=== PATIENT | male | born 1955 | race Caucasian/White ===

== ENCOUNTER 2020-03-22 09:38 | Emergency (ER) | payer MEDICARE, OTHER, SELFPAY ==
--- NOTE | ~2020-03-22 | XR_ITS ---
EXAMINATION: XR chest 2V DATE: 03/22/2020 10:32 INDICATION: Cough, congestion and chest heaviness TECHNIQUE: frontal and lateral views of the chest were obtained. COMPARISON: Chest radiograph dated 12/01/2014 FINDINGS: The lungs remain clear with no focal airspace opacities, pulmonary edema, pleural effusion or pneumot horax. The cardiomediastinal silhouette is normal. There are bridging osteophytes at multiple levels in the spine, consistent with diffuse idiopathic skeletal hyperostosis (DISH). IMPRESSION: 1. No acute cardiopulmonary disease. Reviewed, dictated and finalized at location A. [facility]
[2020-03-22 09:52] VITALS: BP 123/68; PULSE 53; RESP 18; TEMP 36.2; O2SAT 98
--- NOTE | 2020-03-22 10:20 | ED.URI ---
HPI - URI/Sore Throat General Chief Complaint: Upper Respiratory Infection Stated Complaint: Sore Throat Source: patient and RN notes reviewed Mode of arrival: ambulatory Limitations: no limitations History of Present Illness HPI Narrative: This is a 64-year-old white male that presented to the urgent care today complaining of a sore throat, productive cough with yellowish sputum, chest congestion fatigue and diarrhea with some shortness of breath. Patient noted that he recently was tested for Covid with a rapid test that was negative he requested that a send out Covid test be completed. Patient noted that he started developing symptoms approximately 1 week ago. The patient denies CP, palpitation, extremity numbness, lightheadedness, dizziness, constipation, chills, or fever. Related Data Home Medications Medication Instructions Recorded Confirmed allopurinol 100 mg PO DAILY 03/22/20 03/22/20 atorvastatin 40 mg PO DAILY 03/22/20 03/22/20 lisinopril 10 mg PO DAILY 03/22/20 03/22/20 metoprolol succinate 25 mg PO DAILY 03/22/20 03/22/20 rivaroxaban [Xarelto] 20 mg PO DAILY 03/22/20 03/22/20 Allergies Allergy/AdvReac Type Severity Reaction Status Date / Time CEPHASPORINS Allergy Hives Uncoded 03/22/20 10:25 Review of Systems Review of Systems: All systems reviewed & are unremarkable except as noted in HPI and below (10 point system review) Exam Narrative: Exam Narrative: GENERAL: This is a well-nourished, well-developed patient, in no apparent distress. HEAD: normocephalic, atraumatic. EYES: PERRL. Sclera clear/white. Vision is grossly intact. EARS: External ears normal, auditory canals clear and without drainage, TMs normal without perforation. Hearing grossly intact. NOSE: External nose normal with no obvious nasal discharge, nares without redness, no rhinorrhea. THROAT: Mucous membranes moist, posterior pharynx clear. NECK: Neck supple, non-tender without lymphadenopathy, masses or thyromegaly. CARDIOVASCULAR: Regular rate and rhythm without murmurs, gallops, or rubs. RESPIRATORY: Clear to auscultation. Breath sounds equal bilaterally. No wheezes, rales, or rhonchi. GASTROINTESTINAL: Abdomen soft, non-tender, nondistended. Bowel sounds are active. No hepato-splenomegaly, or palpable masses. No guarding. SKIN: warm, intact with no suspicious lesions or rash, good texture and turgor. NEURO: awake, alert, and oriented to person, place and time. There were no obvious focal neurologic abnormalities. Steady gait EXTREMITIES: Normal range of motion. No edema. No calf tenderness. Negative Homans sign bilaterally. BACK: Nontender without deformity or crepitance. No flank tenderness. Course Vital Signs Vital signs: Vital Signs Temperature 97.2 F L 03/22/20 09:52 Pulse Rate 53 L 03/22/20 09:52 Respiratory Rate 18 03/22/20 09:52 Blood Pressure 123/68 03/22/20 09:52 Pulse Oximetry 98 03/22/20 09:52 Temperature 97.2 F L 03/22/20 09:52 Pulse Rate 53 L 03/22/20 09:52 Respiratory Rate 18 03/22/20 09:52 Blood Pressure 123/68 03/22/20 09:52 Pulse Oximetry 98 03/22/20 09:52 MDM - URI/Sore Throat Differential Diagnosis Differential diagnosis: Likely upper respiratory infection, otitis media, sinusitis, viral infection and pharyngitis Lab Data Attestation: I reviewed the patient's lab results. Labs: Strep Screen Presumptive Negative *(Reference Range: Negative)* Discharge Plan Discharge Clinical Impression: Upper respiratory infection Patient Disposition: Home, Self-Care Condition: Stable Instructions: Antibiotic Form, Upper Respiratory Infection (DC) Additional Instructions: This is likely viral illness, no antibiotic is needed at this time. Treatment is aimed toward your specific symptoms. You must treat your symptoms in order to feel better while the virus runs it's course. Recommend antihistamine such as Benadryl at n
== END 2020-03-22 10:53 | disposition home or self-care (01) ==
PROVIDERS: Emergency Provider Nurse Practitioner
DX: J06.9 Acute upper respiratory infection, unspecified (principal)
CPT/HCPCS: 71046; 87081; 87880; 99213; G0463

== ENCOUNTER 2021-05-21 09:36 | Emergency (ER) | payer MEDICARE, OTHER, SELFPAY ==
[2021-05-21 09:49] VITALS: BP 134/76; PULSE 57; RESP 18; TEMP 36; O2SAT 99
--- NOTE | 2021-05-21 10:37 | ED.EYEPROB ---
HPI - Eye Problem General Chief complaint: Eye Problems Stated complaint: Jaw pain,Eye Irritation Time Seen by Provider: 05/21/21 10:21 Source: patient and RN notes reviewed Mode of arrival: ambulatory Limitations: no limitations History of Present Illness HPI Narrative: Patient presents today complaining of a 2-day history of green/yellow eye drainage and redness in the morning and at night, as well as mild right lower jaw/throat pain. He currently rates his pain 2/10. He has tried no medication for symptoms prior to arrival. Denies fever, cough, congestion or rhinorrhea. Denies vision changes. He does not wear contacts. States he has had cold symptoms for the past couple weeks, but had almost fully resolved prior to arrival. Related Data Home Medications Medication Instructions Recorded Confirmed allopurinol 100 mg PO DAILY 03/22/20 05/21/21 atorvastatin 40 mg PO DAILY 03/22/20 05/21/21 lisinopril 10 mg PO DAILY 03/22/20 05/21/21 metoprolol succinate 25 mg PO DAILY 03/22/20 05/21/21 rivaroxaban [Xarelto] 20 mg PO DAILY 03/22/20 05/21/21 apixaban [Eliquis] 5 mg DIRECTED 05/21/21 05/21/21 Allergies Allergy/AdvReac Type Severity Reaction Status Date / Time CEPHASPORINS Allergy Hives Uncoded 03/22/20 10:25 Review of Systems Review of Systems: CONSTITUTIONAL: Denies body aches, fever, chills, or sweats. EYES: Denies visual changes. + Right eye redness and discharge ENT: Denies rhinorrhea, congestion, or otalgia. Right jaw pains and sore throat CARDIOVASCULAR: Denies chest pain, palpitations, or edema. RESPIRATORY: Denies cough or dyspnea. GASTROINTESTINAL: Denies abdominal pain, nausea, vomiting, or diarrhea. GENITOURINARY: Denies dysuria or hematuria. SKIN: Denies rash, itching, or wounds. MUSCULOSKELETAL: Denies back pain, joint pain, or myalgia. NEUROLOGIC: Denies headache, numbness, tingling, or weakness. PSYCH: Denies depression or anxiety. PMFSH Comments At time of signature, I have reviewed and agree with nursing past medical, surgical, social and family history unless otherwise noted. Please see nursing chart for further information. There is no relevant family history pertinent to the presenting complaint Exam Narrative: GENERAL: Well-appearing, well-nourished, and in no acute distress. HEAD: Normocephalic, atraumatic. EYES: EOMI. PERRL. Right eye: Injected conjunctiva. No active drainage. Lids and lashes normal. Left eye normal. ENT: Mucous membranes pink and moist. Nares clear. No rhinorrhea. TMs normal bilaterally. Throat normal. Uvula midline. Patient localizes his sore throat at a submandibular lymph node that is mildly swollen. NECK: Normal AROM. Supple. CHEST: No respiratory distress. Clear to auscultation. HEART: Regular rate and rhythm. No murmur appreciated. Normal peripheral pulses. ABDOMEN: Soft, nontender, nondistended, normal active bowel sounds. MUSCULOSKELETAL: No bony tenderness. EXTREMITIES: Normal range of motion. No edema. SKIN: Warm, dry, no rash. Capillary refill normal. Normal skin turgor. NEURO: No focal deficits. Alert and oriented x3. Gait steady. PSYCH: Normal affect. No signs of depression or anxiety. Course Course Level of Care: Express Care Visit Vital Signs Vital signs: Vital Signs Temperature 96.8 F L 05/21/21 09:49 Pulse Rate 57 L 05/21/21 09:49 Respiratory Rate 18 05/21/21 09:49 Blood Pressure 134/76 05/21/21 09:49 Pulse Oximetry 99 05/21/21 09:49 Temperature 96.8 F L 05/21/21 09:49 Pulse Rate 57 L 05/21/21 09:49 Respiratory Rate 18 05/21/21 09:49 Blood Pressure 134/76 05/21/21 09:49 Pulse Oximetry 99 05/21/21 09:49 Reviewed. Pt has been instructed to follow up with his PCP regarding his elevated blood pressure today. MDM - Eye Problem Differential Diagnosis Differential diagnosis: Likely corneal abrasion, conjunctivitis, periorbital cellulitis and other (Strep throat, pharyngitis) Critical Care Time Criti
== END 2021-05-21 10:55 | disposition home or self-care (01) ==
PROVIDERS: Emergency Provider Nurse Practitioner
DX: H10.9 Unspecified conjunctivitis (principal); I88.9 Nonspecific lymphadenitis, unspecified; I48.91 Unspecified atrial fibrillation; E78.00 Pure hypercholesterolemia, unspecified; I10 Essential (primary) hypertension
CPT/HCPCS: 99213; G0463

== ENCOUNTER 2021-08-16 08:28 | Emergency (ER) | payer MEDICARE, OTHER, SELFPAY ==
[2021-08-16 08:41] VITALS: BP 130/75; PULSE 54; RESP 16; TEMP 35.6; O2SAT 98
--- NOTE | 2021-08-16 09:13 | ED.URI ---
HPI - URI/Sore Throat General Chief Complaint: Upper Respiratory Infection Stated Complaint: Sore throat,Cough Time Seen by Provider: 08/16/21 09:13 Source: patient Mode of arrival: ambulatory Limitations: no limitations History of Present Illness HPI Narrative: 66-year-old male presents with complaint of nasal congestion, cough, sore throat for 2 to 3 days. Denies fever chills. Denies fatigue denies chest pain or shortness of breath. Denies nausea vomiting diarrhea. Is not taking any [id number] medications to treat his symptoms. 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 All systems reviewed and negative except as noted above. Related Data Home Medications Medication Instructions Recorded Confirmed allopurinol 100 mg PO DAILY 03/22/20 08/16/21 atorvastatin 40 mg PO DAILY 03/22/20 08/16/21 lisinopril 10 mg PO DAILY 03/22/20 08/16/21 metoprolol succinate 25 mg PO DAILY 03/22/20 08/16/21 rivaroxaban [Xarelto] 20 mg PO DAILY 03/22/20 08/16/21 apixaban [Eliquis] 5 mg DIRECTED 05/21/21 08/16/21 fluticasone propionate [Flonase 50 mcg INTRANASAL DAILY 08/16/21 08/16/21 Allergy Relief] Allergies Allergy/AdvReac Type Severity Reaction Status Date / Time Cephalosporins Allergy Rash Verified 08/16/21 08:39 Review of Systems Review of Systems: CONSTITUTIONAL: Denies fever, chills, or sweats. EYES: Denies visual changes, redness, or discharge. ENT: Reports rhinorrhea, congestion, sore throat. Denies otalgia. CARDIOVASCULAR: Denies chest pain, palpitations, or edema. RESPIRATORY: Reports cough. Denies dyspnea. GASTROINTESTINAL: Denies abdominal pain, nausea, vomiting, or diarrhea. GENITOURINARY: Denies dysuria or hematuria. SKIN: Denies rash or itching. MUSCULOSKELETAL: Denies back pain, joint pain, or myalgia. NEUROLOGIC: Denies headache, numbness, or weakness. PSYCHIATRIC: Denies anxiety or depression. All other systems reviewed are negative, except as documented in HPI. PMFSH Comments At time of signature, agree with nursing past medical, surgical, social and family history. There is no relevant family history pertinent to the presenting complaint. Exam Narrative: GENERAL: This is a well-nourished, well-developed patient, in no apparent distress. HEAD: normocephalic, atraumatic. EYES: PERRL. Sclera clear/white. Vision is grossly intact. EARS: External ears normal, auditory canals clear and without drainage, TMs normal without perforation. Hearing grossly intact. NOSE: External nose normal with clear nasal drainage. No erythema or swelling to nares. THROAT: Mucous membranes moist, posterior pharynx clear. NECK: Neck supple, non-tender without lymphadenopathy, masses or thyromegaly. CARDIOVASCULAR: Regular rate and rhythm without murmurs, gallops, or rubs. RESPIRATORY: Clear to auscultation. Breath sounds equal bilaterally. No wheezes, rales, or rhonchi. SKIN: warm, Dry, intact with no suspicious lesions or rash, good texture and turgor. NEURO: awake, alert, and oriented to person, place and time. There were no obvious focal neurologic abnormalities. EXTREMITIES: Normal range of motion to all extremities. Course Course Level of Care: Express Care Visit Vital Signs Vital signs: Vital Signs Temperature 35.6 C L 08/16/21 08:41 Pulse Rate 54 L 08/16/21 08:41 Respiratory Rate 16 08/16/21 08:41 Blood Pressure 130/75 08/16/21 08:41 Pulse Oximetry 98 08/16/21 08:41 Temperature 35.6 C L 08/16/21 08:41 Pulse Rate 54 L 08/16/21 08:41 Respiratory Rate 16 08/16/21 08:41 Blood Pressure 130/75 08/16/21 08:41 Pulse Oximetry 98 08/16/21 08:41 Reviewed MDM - URI/Sore Throat MDM Narrative Medical decision making narrative: Patient is well-appearing. Clear lung sounds. Negative strep, influenza and COVID test. Recommend that he take an [id number] multisymptom relief medication to treat his symptoms. Patient is a
== END 2021-08-16 09:30 | disposition home or self-care (01) ==
PROVIDERS: Emergency Provider Nurse Practitioner Family
DX: J06.9 Acute upper respiratory infection, unspecified (principal); Z20.822 Contact with and (suspected) exposure to COVID-19
CPT/HCPCS: 87081; 87426; 87804; 87880; 99213; C9803; G0463

== ENCOUNTER 2021-08-21 08:04 | Emergency (ER) | payer MEDICARE, OTHER, SELFPAY ==
[2021-08-21 08:16] VITALS: BP 127/78; PULSE 50; RESP 16; TEMP 36.6; O2SAT 97
[2021-08-21 08:17] VITALS: BP 127/78; PULSE 50; RESP 16; TEMP 36.6; O2SAT 97
--- NOTE | 2021-08-21 08:20 | ED.URI ---
HPI - URI/Sore Throat General Chief Complaint: Upper Respiratory Infection Stated Complaint: Congestion Time Seen by Provider: 08/21/21 08:21 Source: patient Mode of arrival: ambulatory Limitations: no limitations History of Present Illness HPI Narrative: 66-year-old male presents with complaint of continued cough, chest congestion. Has been sick for a total of 1 week now. Was seen here about 5 days ago and told viral URI. Was told to take [id number] multisymptom relief. Has been taking a Mucinex day and night cough medicine. He reports that he feels that his chest is more congested. States that cough was significantly worse the last 2 days but woke up this morning and cough is better but still feels congested in chest. States he is somewhat short of breath with exertion and at times has heard himself wheezing. No fever. Denies chest pain. All systems reviewed and negative as noted above. Related Data Home Medications Medication Instructions Recorded Confirmed allopurinol 100 mg PO DAILY 03/22/20 08/21/21 atorvastatin 40 mg PO DAILY 03/22/20 08/21/21 lisinopril 10 mg PO DAILY 03/22/20 08/21/21 metoprolol succinate 25 mg PO DAILY 03/22/20 08/21/21 rivaroxaban [Xarelto] 20 mg PO DAILY 03/22/20 08/21/21 apixaban [Eliquis] 5 mg DIRECTED 05/21/21 08/21/21 fluticasone propionate [Flonase 50 mcg INTRANASAL DAILY 08/16/21 08/21/21 Allergy Relief] Allergies Allergy/AdvReac Type Severity Reaction Status Date / Time Cephalosporins Allergy Rash Verified 08/16/21 08:39 Review of Systems Review of Systems: CONSTITUTIONAL: Denies fever, chills, or sweats. EYES: Denies visual changes, redness, or discharge. ENT: Denies rhinorrhea, congestion, sore throat, or otalgia. CARDIOVASCULAR: Denies chest pain, palpitations, or edema. RESPIRATORY: Reports cough, chest congestion and dyspnea on exertion. GASTROINTESTINAL: Denies abdominal pain, nausea, vomiting, or diarrhea. GENITOURINARY: Denies dysuria or hematuria. SKIN: Denies rash or itching. MUSCULOSKELETAL: Denies back pain, joint pain, or myalgia. NEUROLOGIC: Denies headache, numbness, or weakness. PSYCHIATRIC: Denies anxiety or depression. All other systems reviewed are negative, except as documented in HPI. PMFSH Comments At time of signature, agree with nursing past medical, surgical, social and family history. There is no relevant family history pertinent to the presenting complaint. Exam Narrative: GENERAL: This is a well-nourished, well-developed patient, in no apparent distress. HEAD: normocephalic, atraumatic. EYES: PERRL. Sclera clear/white. Vision is grossly intact. EARS: External ears alysa NOSE: External nose normal NECK: Neck supple, non-tender without lymphadenopathy, masses or thyromegaly. CARDIOVASCULAR: Bradycardic and regular rhythm without murmurs, gallops, or rubs. RESPIRATORY: Mildly decreased lung sounds throughout all lung au. Breath sounds equal bilaterally. No wheezes, rales, or rhonchi. SKIN: warm, Dry, intact with no suspicious lesions or rash, good texture and turgor. NEURO: awake, alert, and oriented to person, place and time. There were no obvious focal neurologic abnormalities. EXTREMITIES: Normal range of motion to all extremities. Course Course Level of Care: Express Care Visit Vital Signs Vital signs: Vital Signs Temperature 36.6 C 08/21/21 08:16 Pulse Rate 50 L 08/21/21 08:16 Respiratory Rate 16 08/21/21 08:16 Blood Pressure 127/78 08/21/21 08:16 Pulse Oximetry 97 08/21/21 08:16 Temperature 36.6 C 08/21/21 08:17 Pulse Rate 50 L 08/21/21 08:17 Respiratory Rate 16 08/21/21 08:17 Blood Pressure 127/78 08/21/21 08:17 Pulse Oximetry 97 08/21/21 08:17 Reviewed. Heart rate is low. Patient's last 3 visits to [facility] heart rate has been in the 50s. Discussed with patient and he states that his heart rate is in the 50s at his PCP visits. He has been taking metoprolol for a long ti
== END 2021-08-21 08:31 | disposition home or self-care (01) ==
PROVIDERS: Emergency Provider Nurse Practitioner Family
DX: J06.9 Acute upper respiratory infection, unspecified (principal); Z79.01 Long term (current) use of anticoagulants
CPT/HCPCS: 99213; G0463

== ENCOUNTER 2021-11-15 08:43 | Emergency (ER) | payer MEDICARE, OTHER, SELFPAY ==
[2021-11-15 08:55] VITALS: BP 134/66; PULSE 60; RESP 18; TEMP 36.3; O2SAT 98
--- NOTE | 2021-11-15 09:01 | ED.SKABFB ---
HPI - Skin/Abscess/Foreign Bdy General Stated complaint: insect bite Time Seen by Provider: 11/15/21 08:50 Source: patient Mode of arrival: ambulatory Limitations: no limitations History of Present Illness HPI narrative: Mr. López is a 66-year-old male patient presenting to the clinic today with possible insect sting infection to the right lower leg. He reports that he was stung by yellow jackets 2 to 3 days ago. Reports that the area to his right lower anterior leg became swollen and looked as though it may becoming infected so he put a pin in it to drain. Area has become more red and swollen since. Also reports being stung to the left forearm with some swelling. Related Data Home Medications Medication Instructions Recorded Confirmed allopurinol 100 mg tablet 100 mg PO DAILY 03/22/20 08/21/21 atorvastatin 40 mg tablet 40 mg PO DAILY 03/22/20 08/21/21 lisinopril 10 mg tablet 10 mg PO DAILY 03/22/20 08/21/21 metoprolol succinate 25 mg 25 mg PO DAILY 03/22/20 08/21/21 tablet,extended release 24 hr rivaroxaban 20 mg tablet (Xarelto) 20 mg PO DAILY 03/22/20 08/21/21 apixaban 5 mg tablet (Eliquis) 5 mg DIRECTED 05/21/21 08/21/21 fluticasone propionate 50 50 mcg intranasal DAILY 08/16/21 08/21/21 mcg/actuation nasal spray,suspension (Flonase Allergy Relief) Allergies Allergy/AdvReac Type Severity Reaction Status Date / Time Cephalosporins Allergy Rash Verified 08/16/21 08:39 Review of Systems Review of Systems: Pertinent positives per HPI. Patient denies any fever, chills, headache, visual changes, dizziness, cough, runny nose, sore throat, shortness of breath, chest pain, palpitations, nausea, vomiting, diarrhea, constipation, abdominal pain, or any urinary issues. PMFSH Comments At the time of my signature, I reviewed and agree with the nursing past medical, surgical, social, and family history. There is no relevant family history pertinent to the patient complaint. Exam Narrative: General: Well-developed, well nourished, in no apparent distress Head: Normocephalic, atraumatic. Cardio: Regular rate and rhythm, s1 and s2 normal, no murmur appreciated. Resp: Clear to auscultation bilaterally, no rhonchi, rales, wheezing or rubs. Integumentary: [place], warm, and dry, intact without lesion, insect sting to the left forearm which is swollen and itchy without redness. Insect sting to the right lower leg just above the anterior ankle with green pustular lesion without abscess with surrounding redness the size of a baseball. Mild induration noted with erythema. No drainage Course Course Emergency Course: Portions of this record may have been created with voice recognition software. Level of Care: Express Care Visit Vital Signs Vital signs: Vital signs reviewed MDM - Skin/Abscess/Foreign Bdy MDM Narrative Medical decision making narrative: At the time of visit patient is resting comfortably on the exam table. He denies any shortness of breath, chest pain, difficulty swallowing, or tongue swelling. Has yellow jacket sting to the left forearm which is causing some swelling and itching and insect sting to the right lower extremity that has gotten infected. I will give a course of doxycycline for the infection and have him take Benadryl for itching and swelling. Supportive measures were discussed with the patient he voiced understanding of discharge instructions and agrees to the treatment plan. Differential Diagnosis Differential diagnosis: Likely abscess of skin or subcutaneous tissue, urticaria, cellulitis and insect bites Discharge Plan Discharge Clinical Impression: Bite or sting by insect with infection Patient Disposition: Home, Self-Care Condition: Stable Instructions: Antibiotic Form, Insect Bite or Sting (ED) Additional Instructions: May take benadryl 25-50mg every 6 hours as needed for itching/swelling Take Doxycycline as prescribed Increase fluids and stay well hydrated.
== END 2021-11-15 09:14 | disposition home or self-care (01) ==
PROVIDERS: Emergency Provider Nurse Practitioner Family
DX: T63.461A Toxic effect of venom of wasps, accidental (unintentional), initial encounter (principal); L03.115 Cellulitis of right lower limb; I48.91 Unspecified atrial fibrillation; E78.00 Pure hypercholesterolemia, unspecified; I10 Essential (primary) hypertension
CPT/HCPCS: 99213; G0463

== ENCOUNTER 2022-10-04 09:19 | Emergency (ER) | payer MEDICARE, OTHER, SELFPAY ==
[2022-10-04 09:33] VITALS: BP 123/66; PULSE 76; RESP 16; TEMP 37; O2SAT 97
--- NOTE | 2022-10-04 09:33 | ED.WOUNDLAC ---
HPI - Wound/Laceration General Chief Complaint: Wound/Laceration Stated Complaint: Left Knee Laceration Time Seen by Provider: 10/04/22 09:25 Source: patient Mode of arrival: ambulatory Limitations: no limitations History of Present Illness HPI narrative: Patient is a 67-year-old male who presents with laceration to left knee. 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 Tetanus shot was 5 years ago. Denies any excessive bleeding, put pressure and a Band-Aid on knee. Denies any numbness or tingling to knee or lower extremity. States it is painful to touch. Related Data Home Medications Medication Instructions Recorded Confirmed allopurinol 100 mg tablet 100 mg PO DAILY 03/22/20 10/04/22 atorvastatin 40 mg tablet 40 mg PO DAILY 03/22/20 10/04/22 lisinopril 10 mg tablet 10 mg PO DAILY 03/22/20 10/04/22 metoprolol succinate 25 mg 25 mg PO DAILY 03/22/20 10/04/22 tablet,extended release 24 hr rivaroxaban 20 mg tablet (Xarelto) 20 mg PO DAILY 03/22/20 10/04/22 berberine-herbal comb no.18 capsule 1 cap PO DIRECTED 10/04/22 10/04/22 flecainide 100 mg tablet 100 mg BID 10/04/22 10/04/22 omeprazole 40 mg capsule,delayed 40 mg DIRECTED 10/04/22 10/04/22 release sildenafil 100 mg tablet 100 mg DIRECTED 10/04/22 10/04/22 Allergies Allergy/AdvReac Type Severity Reaction Status Date / Time Cephalosporins Allergy Rash Verified 11/15/21 09:23 Review of Systems Review of Systems: All systems reviewed & are unremarkable except as noted in HPI and below Constitutional: Constitutional: Denies body ache(s), Denies chills, Denies fatigue, Denies fever(s), Denies headache(s), Denies malaise and Denies weakness Eyes: Eyes: Denies blurry vision, Denies irritation and Denies loss of vision ENT: Denies otalgia, Denies headache(s), Denies nasal discharge, Denies sinus pain and Denies sore throat Cardiovascular: Cardiovascular: Denies chest pain, Denies irregular heart rhythm and Denies dyspnea Respiratory: Respiratory: Denies dyspnea Gastrointestinal: Gastrointestinal: Denies abdominal pain, Denies melena, Denies hematochezia, Denies diarrhea, Denies nausea and Denies vomiting Musculoskeletal: Musculoskeletal: Denies back pain, Denies myalgias and Denies arthralgias Integumentary/Breasts: Skin/Breast: Denies pruritus, Denies rash and Reports other (Laceration) Neurologic: Denies headache(s), Denies loss of vision and Denies weakness Psychiatric: Psychiatric: Reports no additional psychiatric complaints Endocrine: Endocrine: Denies fatigue PMFSH Comments At time of signature, agree with nursing past medical, surgical, social and family history. There is no relevant family history pertinent to the presenting complaint. Exam Const: General: cooperative, healthy appearing, comfortable, no acute distress and well nourished Nutritional Appearance: well nourished Orientation/consciousness: patient oriented x3 Limitations: no limitations HENMT: Head: normal to inspection, normocephalic and atraumatic Ears: hearing grossly normal bilaterally and external ears normal Face/Nose/Sinus: Normal external nose present, normal facial exam and face symmetric Face and sinus: normal facial exam and face symmetric Mouth: Yes lip normal Eyes: General: appearance normal, both eyes and all related structures Alignment and Position: alignment normal and position normal Periorbital: periorbital findings normal Eyelids: eyelids normal Pupils: Equal, round and reactive pupils present EOM: EOMs intact bilaterally Neck: Neck: normal visual inspection, full ROM and supple Chest: Chest palpation & inspection: normal inspection of the chest Resp: Effort & Inspection: normal respiratory effort and able to speak in complete sentences Auscultation: clear to auscultation bilaterally Cardio: Rate: regular rate Rhythm: regular rhythm Heart sounds: S1 normal heart sound present and S2 normal heart sound present GI: Inspection
[2022-10-04 09:37] VITALS: BP 123/66; PULSE 76; RESP 16; TEMP 37; O2SAT 97
[2022-10-04] MEDS: TETANUS,DIPHTHERIA,AC PERTUSSIS ADULT (0.5 ML) BOOSTRIX IM (09:55)
== END 2022-10-04 10:35 | disposition home or self-care (01) ==
PROVIDERS: Emergency Provider Nurse Practitioner Family
DX: S81.012A Laceration without foreign body, left knee, initial encounter (principal); W45.8XXA Other foreign body or object entering through skin, initial encounter; Z23 Encounter for immunization; I48.91 Unspecified atrial fibrillation; E78.00 Pure hypercholesterolemia, unspecified; I10 Essential (primary) hypertension
CPT/HCPCS: 12001; 90471; 90715; 99213; G0463

== ENCOUNTER 2022-11-18 09:41 | Emergency (ER) | payer MEDICARE, OTHER, SELFPAY ==
[2022-11-18 09:52] VITALS: BP 140/72; PULSE 72; RESP 14; TEMP 36.5; O2SAT 100
--- NOTE | 2022-11-18 10:01 | ED.SKABFB ---
HPI - Skin/Abscess/Foreign Bdy General Chief complaint: Skin/Abscess/Foreign Body Stated complaint: Insect Bite Time Seen by Provider: 11/18/22 10:02 Source: patient, RN notes reviewed and old records reviewed Mode of arrival: ambulatory Limitations: no limitations History of Present Illness HPI narrative: 67n yo male presents to the [facility] with C/O concern for an insect bite as well as increased redness and warmth to the right anterior brian. States he noticed it about 2 days ago. Has been putting cortisone cream to the area. States it is not getting any better. Patient has a history of hypertension, AFib and is on a blood thinner as well as high cholesterol Patient denies any fevers. Walks with normal gait. Full range of motion noted. Treatments prior to arrival: OTC topical medication Related Data Home Medications Medication Instructions Recorded Confirmed allopurinol 100 mg tablet 100 mg PO DAILY 03/22/20 10/04/22 atorvastatin 40 mg tablet 40 mg PO DAILY 03/22/20 10/04/22 lisinopril 10 mg tablet 10 mg PO DAILY 03/22/20 10/04/22 metoprolol succinate 25 mg 25 mg PO DAILY 03/22/20 10/04/22 tablet,extended release 24 hr rivaroxaban 20 mg tablet (Xarelto) 20 mg PO DAILY 03/22/20 10/04/22 berberine-herbal comb no.18 capsule 1 cap PO DIRECTED 10/04/22 10/04/22 flecainide 100 mg tablet 100 mg BID 10/04/22 10/04/22 omeprazole 40 mg capsule,delayed 40 mg DIRECTED 10/04/22 10/04/22 release sildenafil 100 mg tablet 100 mg DIRECTED 10/04/22 10/04/22 Coq10 200 mg DAILY 11/18/22 Fish Oilx2 DAILY 11/18/22 Joint Support Sup. DAILY 11/18/22 Mens Multivitamin 50+ DAILY 11/18/22 Rogaine Top. 11/18/22 Tumeric Extra Strength 1,000 mg DAILY 11/18/22 Viviscal DAILY 11/18/22 cholecalciferol (vitamin D3) 5,000 unit DAILY 11/18/22 11/18/22 magnesium citrate 100 mg tablet 400 mg PO BID 11/18/22 11/18/22 Allergies Allergy/AdvReac Type Severity Reaction Status Date / Time Cephalosporins Allergy Rash Verified 11/15/21 09:23 Review of Systems Review of Systems: All systems reviewed & are unremarkable except as noted in HPI and below Constitutional: Constitutional: Reports no additional constitutional complaints Eyes: Eyes: Reports no additional eye complaints ENT: Reports system reviewed and no additional complaints, except as documented Cardiovascular: Cardiovascular: Reports no additional cardiovascular complaints, Denies chest pain and Denies dyspnea Respiratory: Respiratory: Reports no additional respiratory complaints, Denies chest congestion, Denies cough and Denies dyspnea Gastrointestinal: Gastrointestinal: Reports no additional gastrointestinal complaints, Denies abdominal pain, Denies nausea and Denies vomiting Musculoskeletal: Musculoskeletal: Reports no additional musculoskeletal complaints Integumentary/Breasts: Skin/Breast: Reports as per HPI Neurologic: Reports system reviewed and no additional complaints, except as documented Psychiatric: Psychiatric: Reports no additional psychiatric complaints Allergic/Immunologic: Allergic/Immunologic: Reports no additional allergic/immunologic complaints [facility] Past Medical History Medical History (Updated 11/18/22 @ 10:28 by Sally Duffy APRN) Afib H/O gastroesophageal reflux (GERD) History of high blood pressure Comments At the time of my signature, I reviewed and agree with the nursing past medical, surgical, social, and family history. There is no relevant family history pertinent to the patient complaint. Exam Const: General: cooperative, healthy appearing, comfortable, no acute distress, well developed, alert and well nourished Nutritional Appearance: well nourished Orientation/consciousness: patient oriented x3 Limitations: no limitations HENMT: Head: normal to inspection Ears: hearing grossly normal bilaterally and external ears normal Face/Nose/Sinus: Normal external nose present, Normal nares present, Normal nasal mucous membra
== END 2022-11-18 10:24 | disposition home or self-care (01) ==
PROVIDERS: Emergency Provider Nurse Practitioner
DX: L03.115 Cellulitis of right lower limb (principal); S80.861A Insect bite (nonvenomous), right lower leg, initial encounter; W57.XXXA Bitten or stung by nonvenomous insect and other nonvenomous arthropods, initial encounter; I48.91 Unspecified atrial fibrillation; K21.9 Gastro-esophageal reflux disease without esophagitis; I10 Essential (primary) hypertension; E78.00 Pure hypercholesterolemia, unspecified; Z79.01 Long term (current) use of anticoagulants
CPT/HCPCS: 99213; G0463

== ENCOUNTER 2023-04-23 09:19 | Emergency (ER) | payer MEDICARE, OTHER, SELFPAY ==
[2023-04-23 09:35] VITALS: BP 102/61; PULSE 73; RESP 16; TEMP 37.2; O2SAT 98
--- NOTE | 2023-04-23 09:59 | ED.URI ---
HPI - URI/Sore Throat General Chief Complaint: Upper Respiratory Infection Stated Complaint: Fatigue/Bodyaches Time Seen by Provider: 04/23/23 09:59 Source: patient and RN notes reviewed Mode of arrival: ambulatory Limitations: no limitations History of Present Illness HPI Narrative: 68 year old male presents with concern for 48 hours of bochyaches, fatigue, cough, fever. He has been taking tramadol. He denies known sick contacts. He denies ST, nasal congestion, rhinorrhea. MD elicited complaint: cough and sore throat Related Data Home Medications Medication Instructions Recorded Confirmed allopurinol 100 mg tablet 100 mg PO DAILY 03/22/20 10/04/22 atorvastatin 40 mg tablet 40 mg PO DAILY 03/22/20 10/04/22 lisinopril 10 mg tablet 10 mg PO DAILY 03/22/20 10/04/22 metoprolol succinate 25 mg 25 mg PO DAILY 03/22/20 10/04/22 tablet,extended release 24 hr rivaroxaban 20 mg tablet (Xarelto) 20 mg PO DAILY 03/22/20 10/04/22 berberine-herbal comb no.18 capsule 1 cap PO DIRECTED 10/04/22 10/04/22 flecainide 100 mg tablet 100 mg BID 10/04/22 10/04/22 omeprazole 40 mg capsule,delayed 40 mg DIRECTED 10/04/22 10/04/22 release sildenafil 100 mg tablet 100 mg DIRECTED 10/04/22 10/04/22 Coq10 200 mg DAILY 11/18/22 Fish Oilx2 DAILY 11/18/22 Joint Support Sup. DAILY 11/18/22 Mens Multivitamin 50+ DAILY 11/18/22 Rogaine Top. 11/18/22 Tumeric Extra Strength 1,000 mg DAILY 11/18/22 Viviscal DAILY 11/18/22 cholecalciferol (vitamin D3) 5,000 unit DAILY 11/18/22 11/18/22 magnesium citrate 100 mg tablet 400 mg PO BID 11/18/22 11/18/22 Allergies Allergy/AdvReac Type Severity Reaction Status Date / Time Cephalosporins Allergy Rash Verified 11/15/21 09:23 Review of Systems Review of Systems: CONSTITUTIONAL: Reports malaise, fatigue fever. EYES: Denies visual changes, redness, or discharge. ENT: Denies rhinorrhea, congestion, sinus pain, otalgia and sore throat. CARDIOVASCULAR: Denies chest pain, palpitations, or edema. RESPIRATORY: Reports cough. Denies dyspnea. GASTROINTESTINAL: Denies abdominal pain, nausea, vomiting, diarrhea SKIN: Denies rash or itching. MUSCULOSKELETAL: Reports myalgia. NEUROLOGIC: Denies headache. All systems reviewed & are unremarkable except as noted in HPI and below PMFSH Past Medical History Medical History (Updated 04/23/23 @ 10:13 by Sally Sy NP) Afib H/O gastroesophageal reflux (GERD) History of high blood pressure Comments At time of signature, agree with nursing past medical, surgical, social and family history. There is no relevant family history pertinent to the presenting complaint Exam Narrative: GENERAL: Nontoxic-appearing, well-nourished, and in no acute distress. HEAD: Normocephalic EYES: PERRLA, conjunctivae clear ENT: Nares clear. Mucous membranes moist. TM pearly townsend with dull light reflex bilaterally; no tragal tenderness. Oropharynx not erythematous without lesions. Tonsils not enlarged and without exudate, no drooling, no hoarseness, no trismus, uvula midline. NECK: Supple. No lymphadenopathy CHEST: Clear to auscultation, breath sounds equal. No wheezing, rhonchi, rales, or stridor. No respiratory distress, speaks in full sentences. HEART: Regular rate and rhythm. No murmur heard. SKIN: Warm, dry, no rash. NEURO: Alert and oriented x3. PSYCH: Normal mood and affect Course Course Emergency Course: Patient is aware of diagnosis, understands and agrees to treatment plan. Anticipatory guidance given. Patient agrees to follow-up as directed and is aware of reasons to seek care at the emergency department. Portions of this record may have been created with voice recognition software Level of Care: Express Care Visit Vital Signs Vital signs: Vital Signs Temperature 99 F 04/23/23 09:35 Pulse Rate 73 04/23/23 09:35 Respiratory Rate 16 04/23/23 09:35 Blood Pressure 102/61 04/23/23 09:35 Pulse Oximetry 98 04/23/23 09:35 Oxygen
== END 2023-04-23 10:20 | disposition home or self-care (01) ==
PROVIDERS: Emergency Provider Nurse Practitioner
DX: U07.1 COVID-19 (principal); I48.91 Unspecified atrial fibrillation
CPT/HCPCS: 87426; 87804; 99213; G0463

== ENCOUNTER 2024-05-18 13:28 | Emergency (ER) | payer MEDICARE, OTHER, SELFPAY ==
[2024-05-18 13:49] VITALS: BP 167/78; PULSE 58; RESP 16; TEMP 36.6; O2SAT 98
--- NOTE | 2024-05-18 13:52 | ED_ITS ---
HPI - Neck Pain/Injury General Chief Complaint: Neck Pain/Injury Stated Complaint: neck issue Time Seen by Provider: 05/18/24 14:12 Source: patient and RN notes reviewed Mode of arrival: ambulatory Limitations: no limitations History of Present Illness HPI Narrative: 69-year-old male presents with concern for neck pain at the base of his skull. He reports the pain had radiated down his right shoulder overnight. He denies any injury or trauma. 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 Reports he had some mild discomfort in his neck last week when he was out of town and slept an unfamiliar pillow. Reports he woke up with acute pain overnight. He denies any weakness, decreased strength, sensation, range of motion in any extremity. Denies problems swelling. Reports his neck pain hurts worse with swallowing. He takes tramadol daily for pain which did not help his neck pain. He reports pain worsens with looking up or turning left or right. He denies fever MD complaint: neck pain Related Data Home Medications ?Medication ?Instructions ?Recorded ?Confirmed ?Last Taken ?Type allopurinol 100 mg tablet 100 mg PO DAILY 03/22/20 10/04/22 Unknown History atorvastatin 40 mg tablet 40 mg PO DAILY 03/22/20 10/04/22 Unknown History lisinopril 10 mg tablet 10 mg PO DAILY 03/22/20 10/04/22 Unknown History metoprolol succinate 25 mg 25 mg PO DAILY 03/22/20 10/04/22 Unknown History tablet,extended release 24 hr rivaroxaban 20 mg tablet (Xarelto) 20 mg PO DAILY 03/22/20 10/04/22 Unknown History berberine-herbal comb no.18 capsule 1 cap PO DIRECTED 10/04/22 10/04/22 Unknown History flecainide 100 mg tablet 100 mg BID 10/04/22 10/04/22 Unknown History omeprazole 40 mg capsule,delayed 40 mg DIRECTED 10/04/22 10/04/22 Unknown History release sildenafil 100 mg tablet 100 mg DIRECTED 10/04/22 10/04/22 Unknown History Coq10 200 mg DAILY 11/18/22 Unknown History Fish Oilx2 DAILY 11/18/22 Unknown History Joint Support Sup. DAILY 11/18/22 Unknown History Mens Multivitamin 50+ DAILY 11/18/22 Unknown History Rogaine Top. 11/18/22 Unknown History Tumeric Extra Strength 1,000 mg DAILY 11/18/22 Unknown History Viviscal DAILY 11/18/22 Unknown History cholecalciferol (vitamin D3) 5,000 unit DAILY 11/18/22 11/18/22 Unknown History magnesium citrate 100 mg tablet 400 mg PO BID 11/18/22 11/18/22 Unknown History Allergies Allergy/AdvReac Type Severity Reaction Status Date / Time Cephalosporins Allergy Rash Verified 05/18/24 13:35 Review of Systems Review of Systems: CONSTITUTIONAL: Denies malaise, chills, sweats, or fever. ENT: Denies rhinorrhea, congestion, sinus pain, otalgia or sore throat. CARDIOVASCULAR: Denies chest pain, palpitations, or edema. RESPIRATORY: Denies cough or dyspnea. GASTROINTESTINAL: Denies abdominal pain. SKIN: Denies rash or itching. MUSCULOSKELETAL: Denies back pain. Reports pain at the base of the skull/neck pain NEUROLOGIC: Denies numbness, weakness, or headache. PSYCHIATRIC: Denies anxiety or depression. All systems reviewed & are unremarkable except as noted in HPI and below PMFSH Past Medical History Medical History (Updated 05/18/24 @ 14:23 by Sally Sy NP) H/O gastroesophageal reflux (GERD) Afib History of high blood pressure Comments At time of signature, agree with nursing past medical, surgical, social and family history. There is no relevant family history pertinent to the presenting complaint Exam Narrative: GENERAL: Well-appearing, well-nourished, and in no acute distress. HEAD: Normocephalic, atraumatic. EYES: PERRLA and EOMI. NECK: Supple. No lymphadenopathy. CHEST: Clear to auscultation. No respiratory distress. HEART: Regular rate and rhythm. Distal pulses palpable and equal, cap refill <3 seconds MUSCULOSKELETAL: Grossly Normal range of motion and strength in all extremities. Normal sensation in dermatomal distributions with sensitivity to light touch and pain. No midline neck tenderness to palpation. Mild bilateral paraspinal tenderness. Transfers from sitting to standing. SKIN: Warm, dry, no rash. No ecchymosis, erythema, open wounds to neck. NEURO: No focal deficits. Alert and oriented x3. Reflexes intact. PSYCH: Normal mood and affect Course Course Emergency Course: Patient is aware of diagnosis, understands and agrees to treatment plan. Anticipatory guidance given. Patient agrees to follow-up as directed and is aware of reasons to seek care at the emergency department. Portions of this record may have been created with voice recognition software Level of Care: Express Care Visit Vital Signs Vital signs: Vital Signs Temperature 97.8 F 05/18/24 13:49 Pulse Rate 58 L 05/18/24 13:49 Respiratory Rate 16 05/18/24 13:49 Blood Pressure 167/78 H 05/18/24 13:49 Pulse Oximetry 98 05/18/24 13:49 Oxygen Delivery Room Air 05/18/24 13:49 Temperature 97.8 F 05/18/24 13:49 Pulse Rate 58 L 05/18/24 13:49 Respiratory Rate 16 05/18/24 13:49 Blood Pressure 167/78 H 05/18/24 13:49 Pulse Oximetry 98 05/18/24 13:49 Oxygen Delivery Room Air 05/18/24 13:49 Reviewed. MDM - Neck Pain/Injury MDM Narrative Medical decision making narrative: No risk factors or findings concerning for epidural abscess, diskitis, vertebral osteomyelitis, cord compression, cauda equina, vertebral fracture or bone malignancy. Patient instructed to consider further imaging and workup through their primary care physician as an outpatient if symptoms persist. Lab Data Attestation: I reviewed the patient's lab results. Critical Care Time Critical Care Time Critical Care Time: No Discharge Plan Discharge Clinical Impression: Neck pain Patient Disposition: Home, Self-Care Condition: Stable Instructions: Acute Neck Pain (ED) Additional Instructions: Please follow up with your Primary Care Doctor within 48-72 hours - call for an appointment. Activity as tolerated. Take Medrol Dosepak as directed, take muscle relaxers every 8 hours as needed for muscle spasm- do not drive or make any important decisions while on this medication for it can make you drowsy. You may apply heat or cold to the area as needed. If you experience any worsening pain, swelling, numbness, weakness please go to ER. Contact your doctor or go to the emergency department if you develop problems with bladder or bowel function, weakness or loss of feeling in one or both of your legs, or any other serious concerns. Patient Language: Macedonian Prescriptions: New cyclobenzaprine 10 mg tablet 10 mg PO TID PRN (Reason: muscle spasm) Qty: 20 0RF methylprednisolone [Medrol (Jim)] 4 mg tablets,dose pack See Rx Instructions .ROUTE .COMPLEX Qty: 21 0RF Rx Instructions: orally per package directions No Action Lagevrio (EUA) 200 mg capsule 800 mg PO Q12H 5 Days Qty: 40 0RF atorvastatin 40 mg tablet 40 mg PO DAILY allopurinol 100 mg tablet 100 mg PO DAILY lisinopril 10 mg tablet 10 mg PO DAILY metoprolol succinate 25 mg tablet extended release 24 hr 25 mg PO DAILY Xarelto 20 mg tablet 20 mg PO DAILY omeprazole 40 mg capsule,delayed release(DR/EC) 40 mg DIRECTED flecainide 100 mg tablet 100 mg BID sildenafil 100 mg tablet 100 mg DIRECTED berberine-herbal comb no.18 Capsule 1 cap PO DIRECTED mupirocin 2 % ointment 1 applic topical BID Qty: 15 0RF magnesium citrate 100 mg Tablet 400 mg PO BID cholecalciferol (vitamin D3) 5,000 unit DAILY Coq10 200 mg DAILY Mens Multivitamin 50+ DAILY Viviscal DAILY Rogaine Top. Fish Oilx2 DAILY Tumeric Extra Strength 1,000 mg DAILY Joint Support Sup. DAILY Follow-up/Referrals: PHYSICIAN NOT ON STAFF,NONSTAFF [Primary Care Provider] -
== END 2024-05-18 14:30 | disposition home or self-care (01) ==
PROVIDERS: Emergency Provider Nurse Practitioner
DX: M54.2 Cervicalgia (principal); I48.91 Unspecified atrial fibrillation
CPT/HCPCS: 99213; G0463

== ENCOUNTER 2024-05-19 08:10 | Outpatient (CLI) | payer MEDICARE, OTHER, SELFPAY ==
--- NOTE | ~2024-05-19 | MR_ITS ---
EXAMINATION: MR ankle LT wo con DATE: 05/19/2024 08:49 INDICATION: Left ankle pain TECHNIQUE: Magnetic resonance imaging (MRI) of the left ankle was performed without intravenous contr ast. Sequences included sagittal, coronal, and axial proton-density weighted fast spin echo without a nd with fat saturation. COMPARISON: None. FINDINGS: Medial ankle ligaments: Also normally sharply demarcated striated pattern of the deep deltoid ligament and attenuation of the anterior deltoid ligament with heterotopic ossifications along the the tip the medial malleolus cons istent with sequela of chronic sprain. The spring ligament complex is normal. Lateral ankle ligaments: There is prominent thickening of the anterior inferior tibiofibular and anterior talofibular ligament s consistent with scarring related to chronic sprain. There is heterotopic ossification along the tib ial side of the S2 vertebral body and intervening anterior and posterior inferior tibiofibular ligame nts, the posterior talofibular ligaments are noted fibular aspects of the anterior talofibular and ca lcaneofibular ligament also consistent with sequela of chronic sprains. Tendons: Achilles tendon is normal. The peroneus longus tendon is normal. There is a longitudinal split tear o f the peroneus longus brevis tendon which demonstrates a C shaped configuration developing anterior m etaphyseal peroneus longus tendon at the level of the retromalleolar groove. The tibialis anterior an d extensor hallucis longus and extensor digitorum longus tendons are normal. The tibialis posterior, flexor digitorum longus and flexor hallucis longus tendons are normal. Plantar fascia: Mild plantar enthesopathy with mild thickening and mild increased signal of the proximal plantar apon eurosis without associated marrow edema or surrounding soft tissue edema to suggest acute plantar fas ciitis. Bones/other: Bone alignment is normal. No fracture or pathologic marrow replacing process. Severe osteoarthritis a t the tibiotalar articulation with severe anterior joint space narrowing and subarticular cystlike ch anges along the tibial plafond and. There is additional mild to moderate polyarticular osteoarthritis at many left mid and hindfoot with additional subarticular cystlike and edema-like signal changes at the negative study subtalar joint as well as at the calcaneocuboid and first, second, fourth and fif th tarsal metatarsal joints. Fluid: Physiologic amount fluid in the joint spaces with mild synovitis at the recesses of the tibiotalar cailin int. No tenosynovitis, bursitis or other abnormal fluid collections. IMPRESSION: 1. Chronic medial and lateral high ankle sprains. 2. 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 Reviewed, dictated and finalized at location A. DRATOR OPERATOR IMPRESSION: 1. Chronic medial and lateral high ankle sprains. 2. 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
== END 2024-05-19 08:11 | disposition home or self-care (01) ==
LOC: MICIMG 08:14
DX: S93.492A Sprain of other ligament of left ankle, initial encounter (principal); X58.XXXA Exposure to other specified factors, initial encounter
CPT/HCPCS: 73721

== ENCOUNTER 2025-03-15 13:19 | Emergency (ER) | payer MEDICARE, OTHER, SELFPAY ==
--- NOTE | 2025-03-15 13:20 | ED.URI ---
HPI - URI/Sore Throat General Chief Complaint: Upper Respiratory Infection Stated Complaint: Sinus Time Seen by Provider: 03/15/25 13:28 Source: patient, RN notes reviewed and old records reviewed Mode of arrival: ambulatory Limitations: no limitations History of Present Illness HPI Narrative: 69-year-old male presents to [facility] with sinus congestion, fatigue, cough. Patient also reports a sore throat From postnasal drainage. Denies chest pain, shortness of breath and fever. Treatments prior to arrival: cold medicine Related Data Home Medications ?Medication ?Instructions ?Recorded ?Confirmed ?Last Taken ?Type allopurinol 100 mg tablet 100 mg PO DAILY 03/22/20 10/04/22 Unknown History atorvastatin 40 mg tablet 40 mg PO DAILY 03/22/20 10/04/22 Unknown History rivaroxaban 20 mg tablet (Xarelto) 20 mg PO DAILY 03/22/20 10/04/22 Unknown History berberine-herbal comb no.18 capsule 1 cap PO DIRECTED 10/04/22 10/04/22 Unknown History omeprazole 40 mg capsule,delayed 40 mg DIRECTED 10/04/22 10/04/22 Unknown History release sildenafil 100 mg tablet 100 mg DIRECTED 10/04/22 10/04/22 Unknown History Coq10 200 mg DAILY 11/18/22 Unknown History Fish Oilx2 DAILY 11/18/22 Unknown History Mens Multivitamin 50+ DAILY 11/18/22 Unknown History Rogaine Top. 11/18/22 Unknown History cholecalciferol (vitamin D3) 5,000 unit DAILY 11/18/22 11/18/22 Unknown History magnesium citrate 100 mg tablet 400 mg PO BID 11/18/22 11/18/22 Unknown History celecoxib 200 mg capsule mg 03/15/25 Unknown History lisinopril 20 mg tablet mg 03/15/25 Unknown History metoprolol succinate 50 mg mg PO 03/15/25 Unknown History tablet,extended release 24 hr tadalafil 10 mg tablet mg 03/15/25 Unknown History tramadol 50 mg tablet mg 03/15/25 Unknown History Allergies Allergy/AdvReac Type Severity Reaction Status Date / Time Cephalosporins Allergy Rash Verified 03/15/25 13:38 Review of Systems Review of Systems: All systems reviewed & are unremarkable except as noted in HPI and below Constitutional: Constitutional: Reports as per HPI ENT: Reports as per HPI Cardiovascular: Cardiovascular: Reports no additional cardiovascular complaints, Denies chest pain and Denies dyspnea Respiratory: Respiratory: Reports as per HPI, Denies chest congestion, Reports cough and Denies dyspnea Musculoskeletal: Musculoskeletal: Reports no additional musculoskeletal complaints Integumentary/Breasts: Skin/Breast: Reports system reviewed and no additional complaints, except as docu [facility] Past Medical History Medical History (Updated 03/15/25 @ 19:22 by Sally Duffy APRN) History of atrial fibrillation H/O gastroesophageal reflux (GERD) Afib History of high blood pressure Surgical History Surgical History (Updated 03/15/25 @ 19:22 by Sally Duffy APRN) H/O cardiac ablation Comments At the time of my signature, I reviewed and agree with the nursing past medical, surgical, social, and family history. There is no relevant family history pertinent to the patient complaint. Exam Const: General: cooperative, healthy appearing, comfortable, no acute distress, well developed, alert and well nourished Nutritional Appearance: well nourished Orientation/consciousness: patient oriented x3 Limitations: no limitations HENMT: Head: normal to inspection Ears: hearing grossly normal bilaterally, external ears normal, TM's normal bilaterally, EAC's normal, mastoids normal and no periauricular adenopathy Face and sinus: normal facial exam, sinuses nontender and face symmetric Mouth: Yes Normal oral and palatal mucosa present, Yes lip normal, Yes tongue normal and Yes moist mucous membranes Throat: posterior oropharynx normal and uvula midline Eyes: General: appearance normal, both eyes and all related structures Alignment and Position: alignment normal Neck: Neck: normal visual inspection, full ROM, no lymphadenopathy and no meningeal signs Chest: Chest palpation & inspection: normal inspection of the chest Resp: Effort & Inspection: normal respiratory effort and able to speak in complete sentences Auscultation: clear to auscultation bilaterally, no crackles, no rales, no rhonchi and no wheezes Cardio: Palpation: normal PMI Rate: regular rate Other: several abnormal heart beats noted, history of PVCs, history of AFib Skin: General skin exam: normal color and no rashes or lesions noted Neuro: General: patient oriented x3, gait normal, moves all extremities and no meningeal signs Cognition (Neuro): normal cognition Speech: normal speech Gait exam (Neuro): Normal gait present Extrem: General: normal to inspection, full ROM, capillary refill normal and normal gait Psych: Appearance: grossly normal and well kempt Mental Status: mental status grossly normal Speech and movement: Normal speech and movement present and Clear speech present Affect: normal affect Attitude: cooperative Course Course Level of Care: Express Care Visit Vital Signs Vital signs: Vital Signs Temperature 97.8 F 03/15/25 13:32 Pulse Rate 65 03/15/25 13:32 Respiratory Rate 20 03/15/25 13:32 Blood Pressure 151/60 H 03/15/25 13:32 Pulse Oximetry 100 03/15/25 13:32 Oxygen Delivery Room Air 03/15/25 13:32 Temperature 97.8 F 03/15/25 13:32 Pulse Rate 65 03/15/25 13:32 Respiratory Rate 20 03/15/25 13:32 Blood Pressure 151/60 H 03/15/25 13:32 Pulse Oximetry 100 03/15/25 13:32 Oxygen Delivery Room Air 03/15/25 13:32 reviewed MDM MDM Narrative Medical decision making narrative: patient sitting in exam room. Patient is nontoxic, vitals are stable. Patient with 4 day history of URI symptoms, flu COVID are negative. On exam patient was noted to have sounded a couple of extra heartbeats however patient does have a history of frequent PVCs, AFib. EKG without acute findings. Patient reports that he had a complete cardiac workup approximately 3 weeks ago and [facility] in [place] Differential Diagnosis Differential Diagnosis: Differential diagnostic considerations for upper respiratory infection include upper respiratory infection, otitis media, sinusitis, viral infection, bronchitis, influenza, pharyngitis, strep, uvulitis.? Medical Records I have reviewed the following patient records and this information was taken into consideration when formulating the assessment and plan.: previous ER visits Lab Data Labs: Lab Results 03/15/25 Range/Units 13:41 POC Influenza A Ag Negative (Negative) POC Influenza B Ag Negative (Negative) POC SARS CoV-2 Ag Negative (Negative) Review ECG Data EKG #1: Attestation: I personally reviewed and interpreted this ECG as follows: ECG completion date: 03/15/25 ECG completion time: 13:45 Interpretation: sinus rhythm, normal EKG, ventricular rate of 67, NH interval 142, QRS duration 86. Critical Care Time Critical Care Time Critical Care Time: No Discharge Plan Discharge Clinical Impression: Upper respiratory infection, Viral infection Patient Disposition: Home Condition: Stable Instructions: Upper Respiratory Infection (DC), Viral Syndrome (ED) Additional Instructions: Your rapid COVID test were negative Your rapid flu test was negative Your symptoms are likely due to a viral illness, which is not treated with antibiotics. Typically viral infections last 7-10 days, can linger for couple of weeks. It is very important to treat your symptoms. Drink plenty of water, Gatorade, Pedialyte, ice pops or Jell-O. - Take Tylenol as needed for pain and fever -Antihistamine medication such as Zyrtec/Claritin during the day can help improve symptoms. do not take anything with the letter D behind it. -doing daily nasal irrigations can help relieve pressure your sinuses. Things like a Neti pot -Use Flonase twice a day for 5 days then daily to help reduce the inflammation and dry up your sinuses. -You can also use Coricidin HBP. Be sure to drink plenty of water with this medication at least 8 ounces with every dose and it is important to drink 8 to 10 glasses of water per day. Water is a natural decongestant -- always check with your pharmacist for medications that are safe with medications that you take on a daily basis. -Eat and drink things that are easy to swallow, like tea or soup, or popsicles. -Oral rinses such as: Salt water gargles and/or may use topical anesthetic (eg. Chloraseptic spray) or lozenges to relieve dryness or throat pain). -Frequent hand washing or hand insurance analyst is one of the best ways to prevent spread of infection. -Using a vaporizer or humidifier at night will also help thin secretions and help with coughing up phlegm. -Follow up with primary care provider in 7-10 days if condition is not improving - For new or worsening symptoms go directly to the nearest ER Patient Language: Gambian Prescriptions: No Action atorvastatin 40 mg tablet 40 mg PO DAILY allopurinol 100 mg tablet 100 mg PO DAILY Patient Comments: BID PER PT LIST Xarelto 20 mg tablet 20 mg PO DAILY omeprazole 40 mg capsule,delayed release(DR/EC) 40 mg DIRECTED sildenafil 100 mg tablet 100 mg DIRECTED berberine-herbal comb no.18 Capsule 1 cap PO DIRECTED mupirocin 2 % ointment 1 applic topical BID Qty: 15 0RF magnesium citrate 100 mg Tablet 400 mg PO BID cholecalciferol (vitamin D3) 5,000 unit DAILY Coq10 200 mg DAILY Mens Multivitamin 50+ DAILY Rogaine Top. Fish Oilx2 DAILY celecoxib 200 mg capsule Patient Comments: BID PRN metoprolol succinate 50 mg tablet extended release 24 hr PO lisinopril 20 mg tablet tadalafil 10 mg tablet tramadol 50 mg tablet Follow-up/Referrals: UNKNOWN,DOCTOR [Non-Staff] Stand Alone Forms: Work/School Release IP Time of Disposition: 14:01
[2025-03-15 13:32] VITALS: BP 151/60; PULSE 65; RESP 20; TEMP 36.6; O2SAT 100
--- NOTE | 2025-03-15 13:51 | ECG_ITS ---
Test Date: 2025-03-15 13:45:45 Measurements Intervals [place] Rate: 67 P: 49 [place]: 142 QRS: 8 QRSD: 86 T: 13 QT: 382 QTc: 406 Interpretive Statements SINUS RHYTHM CANNOT R/O SEPTAL INFARCT, AGE INDETERMINATE BORDERLINE ST-T WAVE ABNORMALITY- INFERIOR LEADS BASELINE ARTIFACT- I, II, III, AVR, AVL, AVF, V3, V5-V6 ABNORMAL ECG No previous ECG available for comparison Electronically Signed On 03-15-2025 14:24:08 [employer] TI[employer] by Ben Bass D.O.
[2025-03-15 14:04] LABS: EDCOVIDSCREEN Negative (Negative); EDINFLUASCREEN Negative (Negative); EDINFLUBSCREEN Negative (Negative)
== END 2025-03-15 14:08 | disposition home or self-care (01) ==
PROVIDERS: Emergency Provider Nurse Practitioner
DX: J06.9 Acute upper respiratory infection, unspecified (principal); B34.9 Viral infection, unspecified; Z20.822 Contact with and (suspected) exposure to COVID-19; I48.91 Unspecified atrial fibrillation; K21.9 Gastro-esophageal reflux disease without esophagitis; I10 Essential (primary) hypertension; Z79.01 Long term (current) use of anticoagulants
CPT/HCPCS: 87426; 87804; 93005; 99213; G0463